=== PATIENT | male | born 2000 | race African-American/Black ===

== ENCOUNTER 2018-01-01 04:34 | Observation (INO) | payer BC ==
--- NOTE | 2018-01-01 05:09 | ERPHSYRPT ---
- History of Present Illness Time Seen by Provider: 01/01/18 04:50 Source: patient, police Exam Limitations: intoxication Physician History: 17 y/o white male presents, in handcuffs, intoxicated with unknown substance(s) . pt was brought in by law enforcement who state while pt was pinned down at home by grandfather, pt stated he wanted . pt is uncooperative in not giving us information and refusing blood draw and obtaining urine specimen. pt is under immediate care home by law enforcement. under immediate care home, pt will have his blood drawn and urine obtained without the pts consent since he is not capable of keeping himself and others around him safe. this was discussed with the pt. pt states he understands but is still refusing to cooperate. Timing/Duration: today Severity of Symptoms-Max: moderate Severity of Symptoms-Current: moderate Context related to: other (drug ingestion comments of possible suicidal ideation ) Suicidal thoughts: other (commented at home he wanted to . ) Previous symptoms: no prior history Allergies/Adverse Reactions: No Known Drug Allergies Allergy (Unverified 07/14/15 22:19) Home Medications: Metformin HCl 500 mg [Glucophage 500 MG] 07/14/15 [History] Hx Tetanus, Diphtheria Vaccination/Date Given: Yes Hx Influenza Vaccination/Date Given: Yes Hx Pneumococcal Vaccination/Date Given: No - Past Medical History Pertinent Past Medical History: Yes Neurological History: No Pertinent History ENT History: No Pertinent History Cardiac History: No Pertinent History Respiratory History: No Pertinent History Endocrine Medical History: Diabetes Type II Musculoskeletal History: No Pertinent History GI Medical History: No Pertinent History History: No Pertinent History Psycho-Social History: Other (drug abuse) Male Reproductive Disorders: No Pertinent History - Past Surgical History Past Surgical History: No Neuro Surgical History: No Pertinent History Cardiac: No Pertinent History Respiratory: No Pertinent History Gastrointestinal: No Pertinent History Genitourinary: No Pertinent History Musculoskeletal: No Pertinent History Male Surgical History: No Pertinent History - Social History Smoking Status: Never smoker Exposure to second hand smoke: No Drug Use: none Patient Lives Alone: No - Review of Systems Constitutional: No Symptoms Eyes: No Symptoms Ears, Nose, & Throat: No Symptoms Respiratory: No Symptoms Cardiac: No Symptoms Abdominal/Gastrointestinal: No Symptoms Genitourinary Symptoms: No Symptoms Musculoskeletal: No Symptoms Skin: No Symptoms Neurological: No Symptoms Psychological: Drug Abuse, Other (agitated) Endocrine: No Symptoms Hematologic/Lymphatic: No Symptoms Immunological/Allergic: No Symptoms All Other Systems: Reviewed and Negative - Nursing Vital Signs Nursing Vital Signs: Initial Vital Signs Temperature 100 F 01/01/18 04:41 Pulse Rate 87 01/01/18 04:41 Respiratory Rate 22 01/01/18 04:41 Blood Pressure 120/73 01/01/18 04:41 O2 Sat by Pulse Oximetry 96 01/01/18 04:41 Pain Scale Pain Intensity 0 - Physical Exam General Appearance: alert, anxiety Eyes, Ears, Nose, Throat Exam: normal ENT inspection Neck Exam: normal inspection, non-tender, supple, full range of motion Respiratory Exam: normal breath sounds, lungs clear, airway intact, No chest tenderness, No respiratory distress Cardiovascular Exam: regular rate/rhythm, normal heart sounds, normal peripheral pulses Gastrointestinal/Abdominal Exam: soft, normal bowel sounds, No tenderness, No guarding, No rebound Extremities Exam: limited range of motion (pts hands in handcuffs behind his back) Current Suicidality: denies suicide plan Neurological Exam: alert, senior information security consultant II-XII nml as tested, agitated Appearance: impaired insight Behavior/Eye Contact/Speech: belligerent, uncooperative, intoxicated appearance Skin Exam: normal color, warm, dry SpO2 Interpretation: normal - Course Nursing assessment & vital signs reviewed: Yes Ordered Tests: Active Orders 24 hr Category Date Time Status EKG-ER Only STAT Care 01/01/18 05:18 Active IV Insertion STAT Care 01/01/18 05:18 Active ACETAMINOPHEN Stat Lab 01/01/18 05:30 Completed CBC W DIFF Stat Lab 01/01/18 05:30 Completed CMP Stat Lab 01/01/18 05:30 Completed CULTURE,URINE Stat Lab 01/01/18 05:30 Received ETHYL ALCOHOL Stat Lab 01/01/18 05:30 Completed Manual Differential NC Stat Lab 01/01/18 05:30 Completed SALICYLATE Stat Lab 01/01/18 05:30 Completed UA W/ MICROSCOPIC Stat Lab 01/01/18 05:30 Completed Urine Triage Profile Stat Lab 01/01/18 05:30 Completed Transfer Order Routine Transfer 01/01/18 Ordered Medication Summary Discontinued Medications Generic Name Dose Route Start Last Admin Trade Name Freq PRN Reason Stop Dose Admin Sodium Chloride 1,000 mls @ 999 mls/hr 01/01/18 05:29 01/01/18 05:41 Sodium Chloride 0.9% 1000 Ml IV 01/01/18 06:29 999 mls/hr .Q1H1M STA Administration Sodium Chloride Confirm 01/01/18 05:35 Sodium Chloride 0.9% 1000 Ml Administered 01/01/18 05:36 Dose 1,000 mls @ ud .ROUTE .STK-MED ONE Ondansetron HCl 4 mg 01/01/18 05:29 01/01/18 05:41 Zofran 4 Mg/2 Ml Vial IV 01/01/18 05:30 4 mg STAT ONE Administration Ondansetron HCl Confirm 01/01/18 05:35 Zofran 4 Mg/2 Ml Vial Administered 01/01/18 05:36 Dose 4 mg .ROUTE .STK-MED ONE Lab/Rad Data: Laboratory Result Diagrams 01/01/18 05:30 01/01/18 05:30 Laboratory Results 01/01/18 01/01/18 01/01/18 Range/Units 05:30 05:30 05:30 WBC (4.0-10.5) K/mm3 RBC (4.1-5.6) M/mm3 Hgb (12.5-18.0) gm/dl Hct (42-50) % MCV (78-100) fl MCH (26-32) pg MCHC (32-36) g/dl RDW (11.5-14.0) % Plt Count (150-450) K/mm3 MPV (6-9.5) fl Gran % (36.0-66.0) % Eos # (Auto) (0-0.5) Absolute Lymphs (auto) (1.0-4.6) Absolute Monos (auto) (0.0-1.3) Lymphocytes % (24.0-44.0) % Monocytes % (0.0-12.0) % Eosinophils % (0.00-5.0) % Basophils % (0.0-0.4) % Absolute Granulocytes (1.4-6.9) Basophils # (0-0.4) Sodium 147 H (137-145) mmol/L Potassium 3.5 (3.5-5.1) mmol/L Chloride 108 H (98-107) mmol/L Carbon Dioxide 22 (22-30) mmol/L Anion Gap 20.3 H (5-15) MEQ/L BUN 11 (9-20) mg/dL Creatinine 0.96 (0.66-1.25) mg/dL Estimated GFR > 60.0 ML/MIN Glucose 171 H (74-106) mg/dL Calcium 9.3 (8.4-10.2) mg/dL Total Bilirubin 0.20 (0.2-1.3) mg/dL AST 21 (17-59) U/L ALT 24 (0-50) U/L Alkaline Phosphatase 148 H (38-126) U/L Serum Total Protein 8.5 H (6.3-8.2) g/dL Albumin 4.9 (3.5-5.0) g/dL Ur Collection Type CLEAN CATCH Urine Color YELLOW (YELLOW) Urine Appearance CLEAR (CLEAR) Urine pH 5.0 (5-6) Ur Specific [place] 1.015 (1.005-1.025) Urine Protein 300 (Negative) Urine Ketones NEGATIVE (NEGATIVE) Urine Blood 5-10 (0-5) Eladio/ul Urine Nitrite NEGATIVE (NEGATIVE) Urine Bilirubin NEGATIVE (NEGATIVE) Urine Urobilinogen NORMAL (0-1) mg/dL Ur Leukocyte Esterase NEGATIVE (NEGATIVE) Urine Microscopic RBC 2-5 (0-2) /HPF Urine Microscopic WBC 0-2 (0-5) /HPF Ur Epithelial Cells FEW (FEW) /HPF Urine Bacteria FEW (NEGATIVE) /HPF Urine Culture Reflexed YES (NO) Urine Glucose NEGATIVE (NEGATIVE) mg/dL Salicylates < 1.0 L (2-20) mg/dL Urine Opiates Level NEGATIVE (NEGATIVE) Ur Methadone NEGATIVE (NEGATIVE) Acetaminophen < 10 L (10-30) ug/ml Urine Barbiturates NEGATIVE (NEGATIVE) Ur Phencyclidine (PCP) NEGATIVE (NEGATIVE) Urine Amphetamine POSITIVE (NEGATIVE) U Benzodiazepine Level NEGATIVE (NEGATIVE) Urine Cocaine NEGATIVE (NEGATIVE) Urine Marijuana (THC) POSITIVE (NEGATIVE) Ethyl Alcohol 258 H (0-10) mg/dL Specimen Received 01-01-18 0620 01/01/18 Range/Units 05:30 WBC 11.7 H (4.0-10.5) K/mm3 RBC 5.13 (4.1-5.6) M/mm3 Hgb 15.2 (12.5-18.0) gm/dl Hct 42.8 (42-50) % MCV 83.4 (78-100) fl MCH 29.6 (26-32) pg MCHC 35.5 (32-36) g/dl RDW 12.6 (11.5-14.0) % Plt Count 331 (150-450) K/mm3 MPV 10.5 H (6-9.5) fl Gran % 51.5 (36.0-66.0) % Eos # (Auto) 0.14 (0-0.5) Absolute Lymphs (auto) 4.21 (1.0-4.6) Absolute Monos (auto) 1.21 (0.0-1.3) Lymphocytes % 36.0 (24.0-44.0) % Monocytes % 10.3 (0.0-12.0) % Eosinophils % 1.2 (0.00-5.0) % Basophils % 1.0 (0.0-0.4) % Absolute Granulocytes 6.02 (1.4-6.9) Basophils # 0.12 (0-0.4) Sodium (137-145) mmol/L Potassium (3.5-5.1) mmol/L Chloride (98-107) mmol/L Carbon Dioxide (22-30) mmol/L Anion Gap (5-15) MEQ/L BUN (9-20) mg/dL Creatinine (0.66-1.25) mg/dL Estimated GFR ML/MIN Glucose (74-106) mg/dL Calcium (8.4-10.2) mg/dL Total Bilirubin (0.2-1.3) mg/dL AST (17-59) U/L ALT (0-50) U/L Alkaline Phosphatase (38-126) U/L Serum Total Protein (6.3-8.2) g/dL Albumin (3.5-5.0) g/dL Ur Collection Type Urine Color (YELLOW) Urine Appearance (CLEAR) Urine pH (5-6) Ur Specific [place] (1.005-1.025) Urine Protein (Negative) Urine Ketones (NEGATIVE) Urine Blood (0-5) Eladio/ul Urine Nitrite (NEGATIVE) Urine Bilirubin (NEGATIVE) Urine Urobilinogen (0-1) mg/dL Ur Leukocyte Esterase (NEGATIVE) Urine Microscopic RBC (0-2) /HPF Urine Microscopic WBC (0-5) /HPF Ur Epithelial Cells (FEW) /HPF Urine Bacteria (NEGATIVE) /HPF Urine Culture Reflexed (NO) Urine Glucose (NEGATIVE) mg/dL Salicylates (2-20) mg/dL Urine Opiates Level (NEGATIVE) Ur Methadone (NEGATIVE) Acetaminophen (10-30) ug/ml Urine Barbiturates (NEGATIVE) Ur Phencyclidine (PCP) (NEGATIVE) Urine Amphetamine (NEGATIVE) U Benzodiazepine Level (NEGATIVE) Urine Cocaine (NEGATIVE) Urine Marijuana (THC) (NEGATIVE) Ethyl Alcohol (0-10) mg/dL Specimen Received - Progress Progress: improved, re-examined Progress Note: 01/01/18 05:33 [employer] police spoke with pt mom, Marisabel Wilkins, in the waiting room. she believes pt might have taken several of his adderal medication. in addition, per her report, he was asking around for help in attempting an overdose. 01/01/18 07:11 pt asleep and calm spoke with dr. choudhary. i reviewed pt hx, condition, lab results with dr. choudhary. she accepts pt for admission to icu. will repeat blood alcohol in a few hours, give ivf, zofran and obtain psych consult. Discussed with : Shen Will see patient in: hospital (observation) Counseled pt/family regarding: drug and/or alcohol abuse, lab results, diagnosis - Departure Time of Disposition: 07:13 Departure Disposition: Observation Clinical Impression: Suicidal thoughts, Alcohol intoxication Condition: Stable Critical Care Time: No Referrals: Provider,Unknown [Primary Care Provider] -
[2018-01-01] MEDS ORDERED: Sodium Chloride 0.9% 1000 ML 1,000 ML IV STA (05:29)
[2018-01-01] MEDS ORDERED: Zofran 4 MG/2 ML VIAL IV ONE (05:29)
[2018-01-01] MEDS ORDERED: Sodium Chloride 0.9% 1000 ML 1,000 ML ONE (05:35)
[2018-01-01] MEDS ORDERED: Zofran 4 MG/2 ML VIAL ONE (05:35)
[2018-01-01 05:39] LABS: Basophil (Absolute #) 0.12 (0-0.4); Eosinophil % 1.2 % (0.00-5.0); Eosinophil (Absolute #) 0.14 (0-0.5); Granulocyte Absolute (ANC) 6.02 (1.4-6.9); Granulocytes % 51.5 % (36.0-66.0); Hematocrit 42.8 % (42-50); Hemoglobin 15.2 gm/dl (12.5-18.0); Lymphocyte (Absolute #) 4.21 (1.0-4.6); Mean Cell Volume 83.4 fl (78-100); Mean Corpuscular Hemoglobin 29.6 pg (26-32); Mean Corpuscular Hgb Concent. 35.5 g/dl (32-36); Mean Platelet Volume 10.5 fl (6-9.5); Monocyte (Absolute #) 1.21 (0.0-1.3); Monocytes % 10.3 % (0.0-12.0); Platelet Count 331 K/mm3 (150-450); Red Blood Count 5.13 M/mm3 (4.1-5.6); Red Cell Distribution Width 12.6 % (11.5-14.0); White Blood Count 11.7 K/mm3 (4.0-10.5)
[2018-01-01 06:08] LABS: ALBUMIN 4.9 g/dL (3.5-5.0); ALKALINE PHOSPHATASE 148 U/L (38-126); ANION GAP 20.3 MEQ/L (5-15); BLOOD UREA NITROGEN 11 mg/dL (9-20); CHLORIDE 108 mmol/L (98-107); Calcium 9.3 mg/dL (8.4-10.2); Carbon Dioxide 22 mmol/L (22-30); Creatinine 1 0.96 mg/dL (0.66-1.25); ETHYL ALCOHOL 258 mg/dL (0-10); Glucose 171 mg/dL (74-106); Potassium 3.5 mmol/L (3.5-5.1); SGOT/AST 21 U/L (17-59); SGPT/ALT 24 U/L (0-50); SODIUM 147 mmol/L (137-145); Total Protein 8.5 g/dL (6.3-8.2)
[2018-01-01 06:15] LABS: Amphetamine,Urine POSITIVE (NEGATIVE); Barbiturate,Urine NEGATIVE (NEGATIVE); Benzodiazepine,Urine NEGATIVE (NEGATIVE); Cocaine,Urine NEGATIVE (NEGATIVE); Methadone,Urine NEGATIVE (NEGATIVE); Opiate,Urine NEGATIVE (NEGATIVE); PCP,Urine NEGATIVE (NEGATIVE); THC,Urine POSITIVE (NEGATIVE)
[2018-01-01 06:24] LABS: Appearance CLEAR (CLEAR); Bilirubin NEGATIVE (NEGATIVE); Glucose NEGATIVE (NEGATIVE); Ketones NEGATIVE (NEGATIVE); Leukocyte Esterase NEGATIVE (NEGATIVE); Nitrite NEGATIVE (NEGATIVE); Protein,Urine Dip 300 (Negative); Specific Gravity 1.015 (1.005-1.025); Urobilinogen NORMAL mg/dL (0-1)
[2018-01-01 06:25] LABS: Bacteria FEW /HPF (NEGATIVE); Epithelial Cells FEW /HPF (FEW); WBC 0-2 /HPF (0-5)
[2018-01-01 06:26] LABS: ACETAMINOPHEN < 10 ug/ml (10-30); SALICYLATE < 1.0 mg/dL (2-20)
[2018-01-01 07:44] LABS: ATYPICAL LYMPHS 1 %; BAND 1 % (0.0-2.0); Lymphocytes 39 % (24-44); Monocyte 3 % (0.0-12.0); Neutrophils 56 % (36.-66.); Total Cells Counted 100
[2018-01-01 07:45] LABS: Platelet Estimate NORMAL (NORMAL)
[2018-01-01] MEDS ORDERED: Zofran 4 MG/2 ML VIAL IV PRN (07:47)
[2018-01-01] MEDS ORDERED: Sodium Chloride 0.9% 1000 ML 1,000 ML IV SCH (07:47)
[2018-01-01] MEDS ORDERED: Ativan 2 MG/1 ML VIAL IM PRN (08:58)
[2018-01-01] MEDS ORDERED: NovoLOG Insulin SQ PRN (09:05)
[2018-01-01 11:26] VITALS: BP 99/50; O2SAT 98
[2018-01-01 12:05] LABS: ANION GAP 14.4 MEQ/L (5-15); BLOOD UREA NITROGEN 12 mg/dL (9-20); CHLORIDE 111 mmol/L (98-107); Calcium 8.5 mg/dL (8.4-10.2); Carbon Dioxide 25 mmol/L (22-30); Creatinine 1 0.86 mg/dL (0.66-1.25); Glucose 135 mg/dL (74-106); Potassium 3.7 mmol/L (3.5-5.1); SODIUM 146 mmol/L (137-145)
--- NOTE | 2018-01-01 13:57 | HP ---
HISTORY OF PRESENT ILLNESS: This is a 17 year-old who the emergency room doctor reports does not have a physician in the local area. He was brought into the emergency department by the Police under an emergency nursing home. According to the emergency room doctor's report, he was in handcuffs and uncooperative. He has had drug and urine test done due to his being in the emergency nursing home even though he was not cooperative they report. This morning every time I asked the patient a question his answer is "Hell". REVIEW OF SYSTEMS: Unobtainable due to the patient's condition or uncooperativeness. PAST MEDICAL HISTORY: Diabetes mellitus type 2 according to the emergency room physician obtained from the family when they were here in the emergency department. PAST SURGICAL HISTORY: Unknown. MEDICATIONS: The emergency room doctor reports he is on Adderall and Metformin. I am not sure who prescribes these. ALLERGIES: NKDA. FAMILY HISTORY: Unknown. PHYSICAL EXAMINATION: VITAL SIGNS: Temperature current 99.2F, temperature max 100F, heart rate 84 to 87, respiratory rate 14 to 22, blood pressure 120 to 126 over 62 to 73, weight 95.2 kg. Oxygen saturation 96 to 97% on room air. GENERAL: The patient is lying in bed. He will not let the nurses move him from the emergency room gurney to the ICU bed. He is somnolent. HEENT: I checked the left pupil but when I go to check his right pupil he will not open his eye. He holds his eye lids shut. He will moan and answer his one-word answer as stated in the history of present illness. EXTREMITIES: Moving all four extremities. There is some dry blood on his t-shirt but no abrasions or lacerations are noted. SKIN: Warm, dry and intact. He has good capillary refill. LABORATORY DATA AND TESTS: His sodium was slightly elevated at 147, chloride 108, glucose 176, alkaline phosphatase 148. UA had 300 protein, few bacteria, 0 to 2 white blood cells. Urine tox is positive for amphetamines and marijuana. Ethanol alcohol was 258. Acetaminophen less than 10. Salicylates less than 1. White blood cell count 11.7. ASSESSMENT AND PLAN: 1) Alcohol intoxication: I plan to repeat an alcohol level later this morning. 2) Polysubstance abuse: Will recheck a Tylenol level after four hours, concerned that it is not high. 3) Suicidal ideation: The emergency room doctor reported that he told the Police that he had thoughts of hurting himself. He has a [facility] consult pending. However, he needs to have a normal alcohol level before they will evaluate him. 4) Diabetes mellitus type 2: Will plan for Accu-Chek's three times a day sliding scale as needed. 5) Hypernatremia: Most likely due to mild dehydration. The patient has been uncooperative. IV fluids at this time.
[2018-01-01 16:06] VITALS: PULSE 99
--- NOTE | 2018-01-01 18:21 | PCM.DS ---
Discharge Summary Date of Admission: 01/01/18 07:43 Admitting Physician: GENEVA TODD Primary Care Provider: INDER KOEHLER Allergies Allergies No Known Drug Allergies Allergy (Unverified 07/14/15 22:19) Hospital Summary - Hospital Course Hospital Course: Pt admitted by ID/ED, brought in by police in handcuffs, intoxicated. Had remarked to family member that he wanted to kill himself. UDS + for methamphetamines and marijuana. Alcohol 254; repeat 194. Initially he was combative, then somnolent. When he awoke, [facility] did consult. He has denied suicidal ideation since being awake. Now he is conversant. Readily accepts that "this was my fault." Denies any recent suicidal ideation and does not remember the drinking episode. States he drank more than usual because it was the last night of summer. Is anxious to get moved to [place] to start ISU in the morning. - Vitals & Intake/Output Vital Signs: Vital Signs Temperature 98.1 F 01/01/18 16:00 Pulse Rate 99 H 01/01/18 16:00 Respiratory Rate 18 01/01/18 16:00 Blood Pressure 99/50 01/01/18 16:00 O2 Sat by Pulse Oximetry 98 01/01/18 16:00 Intake & Output: Intake & Output 12/30/17 12/31/17 01/01/18 01/02/18 11:59 11:59 11:59 11:59 Weight 95.254 kg - Lab Result Diagrams: 01/01/18 05:30 01/01/18 11:41 Lab Results-Last 24 Hrs: Accuchecks Date 01/01/18 Time 12:13 Lab Results-Last 24 Hours 01/01/18 01/01/18 01/01/18 Range/Units 05:30 05:30 05:30 WBC 11.7 H (4.0-10.5) K/mm3 RBC 5.13 (4.1-5.6) M/mm3 Hgb 15.2 (12.5-18.0) gm/dl Hct 42.8 (42-50) % MCV 83.4 (78-100) fl MCH 29.6 (26-32) pg MCHC 35.5 (32-36) g/dl RDW 12.6 (11.5-14.0) % Plt Count 331 (150-450) K/mm3 MPV 10.5 H (6-9.5) fl Gran % 51.5 (36.0-66.0) % Eos # (Auto) 0.14 (0-0.5) Absolute Lymphs (auto) 4.21 (1.0-4.6) Absolute Monos (auto) 1.21 (0.0-1.3) Lymphocytes % 36.0 (24.0-44.0) % Monocytes % 10.3 (0.0-12.0) % Eosinophils % 1.2 (0.00-5.0) % Basophils % 1.0 (0.0-0.4) % Absolute Granulocytes 6.02 (1.4-6.9) Segmented Neutrophils 56 (36.-66.) % Band Neutrophils 1 (0.0-2.0) % Lymphocytes (Manual) 39 (24-44) % Monocytes (Manual) 3 (0.0-12.0) % Basophils # 0.12 (0-0.4) Atypical Lymphocytes 1 % Platelet Estimate NORMAL (NORMAL) RBC Morphology NORMAL Sodium 147 H (137-145) mmol/L Potassium 3.5 (3.5-5.1) mmol/L Chloride 108 H (98-107) mmol/L Carbon Dioxide 22 (22-30) mmol/L Anion Gap 20.3 H (5-15) MEQ/L BUN 11 (9-20) mg/dL Creatinine 0.96 (0.66-1.25) mg/dL Estimated GFR > 60.0 ML/MIN Glucose 171 H (74-106) mg/dL Hemoglobin A1c (4.5-6.0) % Calcium 9.3 (8.4-10.2) mg/dL Total Bilirubin 0.20 (0.2-1.3) mg/dL AST 21 (17-59) U/L ALT 24 (0-50) U/L Alkaline Phosphatase 148 H (38-126) U/L Serum Total Protein 8.5 H (6.3-8.2) g/dL Albumin 4.9 (3.5-5.0) g/dL Ur Collection Type CLEAN CATCH Urine Color YELLOW (YELLOW) Urine Appearance CLEAR (CLEAR) Urine pH 5.0 (5-6) Ur Specific [place] 1.015 (1.005-1.025) Urine Protein 300 (Negative) Urine Ketones NEGATIVE (NEGATIVE) Urine Blood 5-10 (0-5) Eladio/ul Urine Nitrite NEGATIVE (NEGATIVE) Urine Bilirubin NEGATIVE (NEGATIVE) Urine Urobilinogen NORMAL (0-1) mg/dL Ur Leukocyte Esterase NEGATIVE (NEGATIVE) Urine Microscopic RBC 2-5 (0-2) /HPF Urine Microscopic WBC 0-2 (0-5) /HPF Ur Epithelial Cells FEW (FEW) /HPF Urine Bacteria FEW (NEGATIVE) /HPF Urine Culture Reflexed YES (NO) Urine Glucose NEGATIVE (NEGATIVE) mg/dL Salicylates < 1.0 L (2-20) mg/dL Urine Opiates Level (NEGATIVE) Ur Methadone (NEGATIVE) Acetaminophen < 10 L (10-30) ug/ml Urine Barbiturates (NEGATIVE) Ur Phencyclidine (PCP) (NEGATIVE) Urine Amphetamine (NEGATIVE) U Benzodiazepine Level (NEGATIVE) Urine Cocaine (NEGATIVE) Urine Marijuana (THC) (NEGATIVE) Ethyl Alcohol 258 H (0-10) mg/dL Specimen Received 01-01-18 0620 01/01/18 01/01/18 01/01/18 Range/Units 05:30 05:30 11:41 WBC (4.0-10.5) K/mm3 RBC (4.1-5.6) M/mm3 Hgb (12.5-18.0) gm/dl Hct (42-50) % MCV (78-100) fl MCH (26-32) pg MCHC (32-36) g/dl RDW (11.5-14.0) % Plt Count (150-450) K/mm3 MPV (6-9.5) fl Gran % (36.0-66.0) % Eos # (Auto) (0-0.5) Absolute Lymphs (auto) (1.0-4.6) Absolute Monos (auto) (0.0-1.3) Lymphocytes % (24.0-44.0) % Monocytes % (0.0-12.0) % Eosinophils % (0.00-5.0) % Basophils % (0.0-0.4) % Absolute Granulocytes (1.4-6.9) Segmented Neutrophils (36.-66.) % Band Neutrophils (0.0-2.0) % Lymphocytes (Manual) (24-44) % Monocytes (Manual) (0.0-12.0) % Basophils # (0-0.4) Atypical Lymphocytes % Platelet Estimate (NORMAL) RBC Morphology Sodium 146 H (137-145) mmol/L Potassium 3.7 (3.5-5.1) mmol/L Chloride 111 H (98-107) mmol/L Carbon Dioxide 25 (22-30) mmol/L Anion Gap 14.4 (5-15) MEQ/L BUN 12 (9-20) mg/dL Creatinine 0.86 (0.66-1.25) mg/dL Estimated GFR > 60.0 ML/MIN Glucose 135 H (74-106) mg/dL Hemoglobin A1c 7.20 H (4.5-6.0) % Calcium 8.5 (8.4-10.2) mg/dL Total Bilirubin (0.2-1.3) mg/dL AST (17-59) U/L ALT (0-50) U/L Alkaline Phosphatase (38-126) U/L Serum Total Protein (6.3-8.2) g/dL Albumin (3.5-5.0) g/dL Ur Collection Type Urine Color (YELLOW) Urine Appearance (CLEAR) Urine pH (5-6) Ur Specific [place] (1.005-1.025) Urine Protein (Negative) Urine Ketones (NEGATIVE) Urine Blood (0-5) Eladio/ul Urine Nitrite (NEGATIVE) Urine Bilirubin (NEGATIVE) Urine Urobilinogen (0-1) mg/dL Ur Leukocyte Esterase (NEGATIVE) Urine Microscopic RBC (0-2) /HPF Urine Microscopic WBC (0-5) /HPF Ur Epithelial Cells (FEW) /HPF Urine Bacteria (NEGATIVE) /HPF Urine Culture Reflexed (NO) Urine Glucose (NEGATIVE) mg/dL Salicylates (2-20) mg/dL Urine Opiates Level NEGATIVE (NEGATIVE) Ur Methadone NEGATIVE (NEGATIVE) Acetaminophen (10-30) ug/ml Urine Barbiturates NEGATIVE (NEGATIVE) Ur Phencyclidine (PCP) NEGATIVE (NEGATIVE) Urine Amphetamine POSITIVE (NEGATIVE) U Benzodiazepine Level NEGATIVE (NEGATIVE) Urine Cocaine NEGATIVE (NEGATIVE) Urine Marijuana (THC) POSITIVE (NEGATIVE) Ethyl Alcohol (0-10) mg/dL Specimen Received 01/01/18 01/01/18 Range/Units 11:41 11:41 WBC (4.0-10.5) K/mm3 RBC (4.1-5.6) M/mm3 Hgb (12.5-18.0) gm/dl Hct (42-50) % MCV (78-100) fl MCH (26-32) pg MCHC (32-36) g/dl RDW (11.5-14.0) % Plt Count (150-450) K/mm3 MPV (6-9.5) fl Gran % (36.0-66.0) % Eos # (Auto) (0-0.5) Absolute Lymphs (auto) (1.0-4.6) Absolute Monos (auto) (0.0-1.3) Lymphocytes % (24.0-44.0) % Monocytes % (0.0-12.0) % Eosinophils % (0.00-5.0) % Basophils % (0.0-0.4) % Absolute Granulocytes (1.4-6.9) Segmented Neutrophils (36.-66.) % Band Neutrophils (0.0-2.0) % Lymphocytes (Manual) (24-44) % Monocytes (Manual) (0.0-12.0) % Basophils # (0-0.4) Atypical Lymphocytes % Platelet Estimate (NORMAL) RBC Morphology Sodium (137-145) mmol/L Potassium (3.5-5.1) mmol/L Chloride (98-107) mmol/L Carbon Dioxide (22-30) mmol/L Anion Gap (5-15) MEQ/L BUN (9-20) mg/dL Creatinine (0.66-1.25) mg/dL Estimated GFR ML/MIN Glucose (74-106) mg/dL Hemoglobin A1c (4.5-6.0) % Calcium (8.4-10.2) mg/dL Total Bilirubin (0.2-1.3) mg/dL AST (17-59) U/L ALT (0-50) U/L Alkaline Phosphatase (38-126) U/L Serum Total Protein (6.3-8.2) g/dL Albumin (3.5-5.0) g/dL Ur Collection Type Urine Color (YELLOW) Urine Appearance (CLEAR) Urine pH (5-6) Ur Specific [place] (1.005-1.025) Urine Protein (Negative) Urine Ketones (NEGATIVE) Urine Blood (0-5) Ealdio/ul Urine Nitrite (NEGATIVE) Urine Bilirubin (NEGATIVE) Urine Urobilinogen (0-1) mg/dL Ur Leukocyte Esterase (NEGATIVE) Urine Microscopic RBC (0-2) /HPF Urine Microscopic WBC (0-5) /HPF Ur Epithelial Cells (FEW) /HPF Urine Bacteria (NEGATIVE) /HPF Urine Culture Reflexed (NO) Urine Glucose (NEGATIVE) mg/dL Salicylates (2-20) mg/dL Urine Opiates Level (NEGATIVE) Ur Methadone (NEGATIVE) Acetaminophen < 10 L (10-30) ug/ml Urine Barbiturates (NEGATIVE) Ur Phencyclidine (PCP) (NEGATIVE) Urine Amphetamine (NEGATIVE) U Benzodiazepine Level (NEGATIVE) Urine Cocaine (NEGATIVE) Urine Marijuana (THC) (NEGATIVE) Ethyl Alcohol 194 H (0-10) mg/dL Specimen Received Micro Results-Entire Visit: Accuchecks Date 01/01/18 Time 12:13 Discharge Exam General Appearance: no apparent distress, alert Neurologic Exam: oriented x 3, cooperative Skin Exam: normal color, warm, dry, rash (scattered dry skin on extremities) Eye Exam: PERRL, eyes nml inspection Ears, Nose, Throat Exam: pharynx normal, moist mucous membranes, No dry mucous membranes Neck Exam: normal inspection, non-tender, No lymphadenopathy Respiratory Exam: normal breath sounds, lungs clear, No crackles/rales, No rhonchi, No wheezing Cardiovascular Exam: regular rate/rhythm, normal heart sounds, No murmur Gastrointestinal/Abdomen Exam: soft, normal bowel sounds, No tenderness, No distention, No mass, No guarding, No rebound Extremity Exam: normal inspection, No swelling Final Diagnosis/Problem List - Final Discharge Diagnosis/Problem (1) Alcohol intoxication Current Visit: Yes Status: Acute Assessment & Plan: Much improved; resolving. As long as patient does not drive until tomorrow, OK to d/c home. Should avoid alcohol, as he is under the legal age limit; if he does drink, needs to do so in moderation. Will pass this episode on to his PRODUCT DEVELOPMENT ECOLOGIST as she may have been the one prescribing Adderall (would recommend psychiatry start prescribing Adderall). - Discharge Disposition: Home, Self-Care Condition: Good Prescriptions: Continue Metformin HCl 500 mg [Glucophage 500 MG] 500 mg PO BID Ibuprofen 200 mg [Motrin 200 mg] 400 mg PO Q6H PRN PRN #30 tablet PRN Reason: Fever Dextroamphetamine/Amphetamine [Adderall 20 mg Tablet] 20 mg PO BID Albuterol Sulfate [Proair Hfa] 17 gm IH Q4-6HPRN PRN PRN Reason: Shortness Of Breath Follow up with: INDER KOEHLER [Primary Care Provider] - 1 Week
== END 2018-01-01 18:56 | disposition home or self-care (01) ==
LOC: ED 04:34 → ICU 07:43
PROVIDERS: ADMIT Internal Medicine; ATTEND Internal Medicine
DX: F10.129 Alcohol abuse with intoxication, unspecified (principal); Y90.9 Presence of alcohol in blood, level not specified; E11.9 Type 2 diabetes mellitus without complications; Z79.4 Long term (current) use of insulin
CPT/HCPCS: 36000; 36415; 80048; 80053; 80307; 81000; 83036; 85025; 87086; 96374; 99285; G0378; G0481; 96360; J2405; G0480